=== PATIENT | female | born 1950 | race Caucasian/White ===

== ENCOUNTER 2019-04-15 18:53 | Inpatient (IN) ==
[2019-04-15 21:29] LABS: URINE SOURCE CLEAN CATCH
[2019-04-15 21:31] LABS: BASO# 0.08 X1000 (0.0-0.2); EOS# 0.18 X1000 (0.0-0.7); EOS% 2.3 % (0.0-10.0); HEMATOCRIT 50.4 % (37.0-47.0); HEMOGLOBIN 16.1 g/dL (12.0-16.0); IMM GRAN# 0.02 X1000 (0.0-0.04); IMM GRAN% 0.3 % (0.0-0.5); LYMPH# 2.67 X1000 (1.2-3.4); LYMPH% 34.6 % (20.5-51.1); MCH 31.2 PG (27-31); MCHC 31.9 g/dL (33-37); MCV 97.7 FL (81-99); MONO# 0.44 X1000 (0.11-0.59); MONO% 5.7 % (1.7-9.3); MPV 11.4 FL (7.4-10.4); NEUT# 4.33 X1000 (1.4-6.5); NEUT% 56.1 % (42.2-75.2); PLT 272 X1000 (130-400); RBC 5.16 XMIL (4.2-5.4); RDW 13.9 % (11.5-14.5); WBC 7.72 X1000 (4.8-10.8)
[2019-04-15 21:34] LABS: BILIRUBIN URINE NEGATIVE (NEGATIVE); BLOOD URINE NEGATIVE (NEGATIVE); COLOR YELLOW; GLUCOSE URINE NEGATIVE (NEGATIVE); KETONE URINE TRACE mg/dL (NEGATIVE); LEUKOCYTES URINE LARGE (NEGATIVE); NITRITE URINE NEGATIVE (NEGATIVE); PROTEIN URINE TRACE mg/dL (NEGATIVE); SP GRAVITY URINE 1.023; TURBIDITY URINE CLEAR (CLEAR); UROBILINOGEN URINE NORMAL (NORMAL)
[2019-04-15 21:39] LABS: UR EPITHELIAL CELLS <10 /HPF (<10); URINE BACTERIA 1+ /HPF; URINE RBC <10 /HPF (<10)
[2019-04-15] MEDS ORDERED: ROCEPHIN 1 GM in NS 50 ML IV ONE (21:47)
[2019-04-15] MEDS ORDERED: DILAUDID IV ONE (22:12)
[2019-04-15] MEDS ORDERED: ZOFRAN IV ONE (22:12)
[2019-04-15 22:20] LABS: AGAP 15; ALB/GLOB RATIO 1.3; ALBUMIN 4.4 g/dL (3.5-5.0); ALKALINE PHOSPHATASE 153 U/L (32-104); AMYLASE 22 U/L (20-200); BUN 8 mg/dL (8-22); CALCIUM 10.1 mg/dL (8.8-10.2); CHLORIDE 101 mmol/L (98-107); COSMO 281; CREATININE 0.6 mg/dL (0.5-0.9); ESTIMATED GFR > 60; GLUCOSE 91 mg/dL (70-104); GOT 16 U/L (10-30); GPT 11 U/L (10-36); LIPASE 18 U/L (13-60); POTASSIUM 4.2 mmol/L (3.5-5.1); SODIUM 142 mmol/L (136-145); TCO2 26 mmol/L (25-35); TOTAL BILIRUBIN 0.58 mg/dL (0.20-1.00); TOTAL PROTEIN 7.8 g/dL (6.3-8.3)
--- NOTE | 2019-04-15 22:32 | PROVIDER DOCUMENTATION ---
This chart was entered by Maria Alejandra Alvarado Scribe, acting as scribe for Naeem Hoff MD. HPI-Abdominal Pain/GI Problem - General Chief Complaint: Abdominal Pain Stated Complaint: GB ISSUES Time Seen by Provider: 04/15/19 22:07 Source: patient Allergies/Adverse Reactions: Patient Allergies Allergy/AdvReac Type Severity Reaction Status Date / Time amoxicillin Allergy HEADACHE Verified 04/15/19 21:51 clarithromycin [From Biaxin] Allergy RASH Verified 04/15/19 21:51 Home Medications: Home Medication List Medication Instructions Recorded Confirmed Last Taken Type Dicyclomine HCl 20 mg PO Q6H PRN PRN #20 tab 03/25/19 04/15/19 Unknown Rx Ketorolac [Toradol] 10 mg PO Q6H PRN PRN #20 tab 03/25/19 04/15/19 Unknown Rx Ondansetron [Ondansetron Odt] 4 mg PO Q6-8H PRN PRN #10 03/25/19 04/15/19 Unknown Rx tab.rapdis Ciprofloxacin HCl [Cipro] 500 mg pe PO BID 04/15/19 04/15/19 Unknown History Hydrocodone/Acetaminophen 1 ea PO Q6H 04/15/19 04/15/19 Unknown History [Hydrocodon-Acetaminophn 10-325] - History of Present Illness-ABD Nature of Presenting Problems: 69 y/o female presents to the ED with RUQ abdominal pain radiating into her back, nausea, and vomiting. The patient states she was seen here 03/[address] Gonzalez, diagnosed with cholelithiasis with cholecystitis, treated with Augmentin and told to follow-up with Dr Middleton which she did on Friday with cholecystec juan carlos scheduled for 04/22 but was told if pain worsened to return to the ED for surgery earlier. The patient states she is unable to eat without significant increase in pain. She states history of allergy to Biaxin and amoxicillin. Abdominal Pain Onset Location: reports: RUQ Pain Radiation: reports: back Onset/Duration: reports: unsure, other (worsening since yesterday) Timing: reports: still present Modifying Factors: worse with: eating Associated Symptoms: reports: nausea, vomiting. denies: diarrhea Rectal Bleeding: reports: none Similar Symptoms Previously?: Yes Recently seen or treated by another doctor?: Yes (here 03/[address] Middleton Friday ) Review of Systems - Adult - REVIEW OF SYSTEMS - ADULT Constitutional: denies: chills, fever, weight loss Eyes: reports: no symptoms reported Ears, Nose, Mouth & Throat: reports: no symptoms reported Cardiovascular: denies: chest pain, palpitations, syncope Respiratory: reports: no symptoms reported Gastrointestinal: reports: abdominal pain (RUQ), nausea, vomiting. denies: diarrhea Genitourinary: reports: no symptoms reported Musculoskeletal: reports: no symptoms reported Integumentary: reports: no symptoms reported Neurological: reports: no symptoms reported Psychiatric: reports: no symptoms reported Endocrine: reports: no symptoms reported Hematologic/Lymphatic: reports: no symptoms reported Allergic/Immunologic: reports: no symptoms reported All Other Systems: Reviewed and Negative Past History - Adult - PAST MEDICAL HISTORY-ADULT Review of Records: reports: Old Records Reviewed, Nursing Assessment Review, Medications Reviewed Major Childhood Illnesses: reports: denies history Cardiovascular: reports: denies history Respiratory: reports: denies history Gastrointestinal: reports: denies history Obstetrical/Gynecological: reports: denies history Genitourinary: reports: denies history Musculoskeletal: reports: denies history Neurological: reports: denies history Endocrine/Immune: reports: denies history Other Conditions: reports: denies history - IMMUNIZATION STATUS Childhood Immunizations: See Nurse Assessment Flu Vaccine: See Nurse Assessment - FAMILY HISTORY Family History: reviewed, not pertinent - SOCIAL HISTORY Smoking: cigarettes Living Situation: family Physical Exam-General - PHYSICAL EXAM-ADULT Initial Vital Signs Reviewed: Yes - CONSTITUTIONAL General Appearance: alert, mild distress - EYES Eyes: PERRL/EOMI - HEAD, EARS, NOSE, MOUTH & THROAT HENMT: normocephalic/atraumatic, moist mucous membranes - NECK Neck: full range of motion, supple - RESPIRATORY Respiratory: lungs clear, normal breath sounds. negative: rhonchi, wheezing - CARDIOVASCULAR Cardiovascular: regular rate, rhythm, no edema, no gallop, no murmur - GASTROINTESTINAL (ABDOMEN) Abdominal Exam: soft, tenderness (ruq) - MUSCULOSKELETAL Extremity: normal range of motion, no pedal edema - SKIN Integumentary: normal color, warm/dry. negative: diaphoresis - NEUROLOGIC Neurologic: grossly normal Progress - PLAN OF CARE/RESULTS Progress/Plan/Lab Results: Vital Signs - 8 hr 04/15/19 19:10 Temperature 98.1 F Pulse Rate 59 L Respiratory Rate 15 Blood Pressure 162/85 O2 Sat by Pulse Oximetry 100 Laboratory Results - last 24 hr 04/15/19 04/15/19 20:45 21:11 WBC 7.72 RBC 5.16 Hgb 16.1 H Hct 50.4 H MCV 97.7 MCH 31.2 H MCHC 31.9 L RDW Std Deviation 13.9 Plt Count 272 MPV 11.4 H Immature Gran % (Auto) 0.3 Neut % (Auto) 56.1 Lymph % (Auto) 34.6 [place] % (Auto) 5.7 Eos % (Auto) 2.3 Baso % (Auto) 1.0 H Immature Gran # (Auto) 0.02 Neut # (Auto) 4.33 Lymph # (Auto) 2.67 [place] # (Auto) 0.44 Eos # (Auto) 0.18 Baso # (Auto) 0.08 Urine Source CLEAN CATCH Urine Color YELLOW Urine Turbidity CLEAR Urine pH 6.0 Ur Specific [place] 1.023 Urine Protein TRACE A Ur Glucose (Stick) NEGATIVE Ur Ketones (Stick) TRACE A Urine Blood NEGATIVE Urine Nitrite NEGATIVE Urine Bilirubin NEGATIVE Urobilinogen Dipstick NORMAL Urine Leukocytes LARGE A Urine WBC (Auto) 10-20 A Urine RBC (Auto) <10 U Epithel Cells (Auto) <10 Urine Bacteria (Auto) 1+ Urine Crystals Not Reportable Small Round Cells Not Reportable Urine Casts Not Reportable Urine Yeast-like Cells Not Reportable Orders Category Date Time Status Saline Loc DIRECTED Care 04/15/19 19:24 Active NPO Diet 04/15/19 19:24 Active AMYLASE [CHEM] Stat Lab 04/15/19 20:45 Received CBC WITH ELECTRONIC DIFF [HEME] Stat Lab 04/15/19 20:45 Completed COMPREHENSIVE METABOLIC PANEL [CHEM] Stat Lab 04/15/19 20:45 Received LIPASE [CHEM] Stat Lab 04/15/19 20:45 Received URINALYSIS W/POSS RFLX CULT [URINALYSIS] Stat Lab 04/15/19 21:11 Completed URINE CULTURE [RM] Routine Lab 04/15/19 21:11 Received URINE MANUAL MICROSCOPIC [URINALYSIS] Stat Lab 04/15/19 21:11 Completed CefTRIAXONE [Rocephin] 1 gm Med 04/15/19 21:47 Active 0.9% Sodium Chloride Inj [Ns] 50 ml IV NOW Result Diagrams: 04/15/19 20:45 - CONSULTS/PCP/HOSPITALIST Notification #1 *Consult/PCP/Hospitalist*: Dr. López fabrication specialist for Dr. Middleton Time Discussed: 22:17 Reason/Comments: uti, worsening pain Consult Disposition: other (recommendation admission to hospitalist) #2 Consult: Hospitalist, Dr. Mckoy Time Discussed: 22:21 Reason/Comments: cholelithiasis with cholecystis Consult Disposition: Admit Departure - Departure Date of Disposition Decision: 04/15/19 Time of Disposition Decision: 22:19 DIAGNOSIS: Cholelithiasis and acute cholecystitis without obstruction, Biliary dyskinesia Disposition: ADMITTED INPATIENT 09 Certified Medical Emergency: Emergent Condition: Stable Referrals and Follow-Ups: None,PCP [Primary Care Provider] - - Critical Care Note This patient required my direct & personal management of CC.: No Attestation - Physician/ LAUREN Attestation Patient care was provided by Advanced Practice Provider:: No The physician spent face to face time with patient:: Yes Advanced Practice Provider documentation review:: Supervising physician onsite and consulted in the evaluation and care of this patient. The physician did have a face to face encounter with the patient. This chart was documented by the indicated scribe, (Maria Alejandra Alvarado, Jamil) and accurately reflects the services I performed and decisions made by me, Naeem Hoff MD, as attested by the provider's signature.
[2019-04-15] MEDS ORDERED: DILAUDID IV PRN ×2 (22:39→22:41)
[2019-04-15] MEDS ORDERED: SODIUM CHLORIDE 0.9% INJ SCH (22:45)
[2019-04-16] MEDS: PROTONIX IV SCH ×2 (00:56→23:45)
[2019-04-16] MEDS: ZOSYN 3.375 GM in NS 50 ML IV SCH ×5 (00:56→23:45)
[2019-04-16] MEDS: NS 1,000 ML IV SCH ×2 (00:56→17:21)
[2019-04-16] MEDS: ZOFRAN IV PRN ×3 (05:19→17:21)
--- NOTE | 2019-04-16 05:42 | HISTORY AND PHYSICAL ---
CHIEF COMPLAINT: Right upper quadrant abdominal pain along with nausea noted prior to admission. HISTORY OF PRESENT ILLNESS: Ms. Caitlyn Sanchez is a 69-year-old female, who was recently diagnosed as having cholelithiasis as well as cholecystitis. She was seen by Dr. Gonzalez in the ER on 03/25/2019. The patient was scheduled to have follow up with Dr. Middleton to have cholecystectomy done on 04/22/2019. The patient now presents to the hospital with right upper quadrant abdominal pain along with nausea noted prior to admission. She also describes having vomiting. No fever The patient's AST was 16, ALT 11 with alkaline phosphatase of 125. The patient will now be admitted to the floor for further management. PAST MEDICAL HISTORY: Cholelithiasis with cholecystectomy. SOCIAL HISTORY: She smokes cigarettes. Drinks alcohol occasionally. No drug use. ALLERGIES: She is allergic to Biaxin. PAST SURGICAL HISTORY: Unremarkable. FAMILY HISTORY: Positive for diabetes. MEDICATIONS: 1. Ciprofloxacin 500 mg p.o. twice a day. 2. Dicyclomine 20 mg every 6 hours p.r.n. 3. Hydrocodone 10/325 every 6 hours. 4. Ketorolac 10 mg every 6 hours p.r.n. 5. Ondansetron 4 mg every 6 to 8 hours p.r.n. REVIEW OF SYSTEMS: Constitutional: No fever. SYSTEM DESIGNER: Headaches. Eyes: She has glasses. ENT: No sinus problems or hearing loss. Cardiovascular: No chest pain. Respiratory: No cough. GI: As in history of present illness. : No dysuria. Musculoskeletal: Shows joint pains. Dermatology: No skin lesions. Hematology: No bleeding problems. Psychiatric: No anxiety or depression. Endocrinology: No issues with thyroid or diabetes. PHYSICAL EXAMINATION: VITAL SIGNS: Temperature 97.7 degrees and pulse 70. Blood pressure 177/86. Oxygen saturation is 96%. HEENT: Atraumatic, normocephalic, anicteric. Extraocular movements intact. No oral lesions noted. NECK: No lymphadenopathy or thyromegaly. CARDIOVASCULAR: S1, S2. RESPIRATORY: There is evidence of good air entry bilaterally. ABDOMEN: Soft. She is tender in the right upper quadrant. No masses felt. EXTREMITIES: No evidence of edema. CENTRAL NERVOUS SYSTEM: No obvious focal deficit noted. LABORATORY STUDIES: WBCs 7.72, hematocrit 50.4 with a platelet count of 272,000. Sodium 142, potassium 4.2, chloride 101, bicarb 26, BUN is 8 and creatinine 0.6. AST is 16. ALT is 11. Alkaline phosphatase 133. UA shows large amount of leukocytes with 10-20 WBC's per high-power field. ASSESSMENT AND PLAN: 1. Acute cholecystitis/gallstones. Maintain patient NPO. Antiemetics, analgesics, IV antibiotics. Consult with Surgery for possible cholecystectomy. 2. Possible urinary tract infection. Obtain urine culture as well as blood cultures. Maintain patient on antibiotics. 3. Erythrocytosis probably secondary to hemo concentration. Follow up on the patient's hematocrit following hydration. 4. Deep vein thrombosis prophylaxis. Sequential compression devices. 5. Gastrointestinal prophylaxis. PPI. cc: Ronnell Fernández MD MTDD
--- NOTE | 2019-04-16 07:11 | GENERAL SURGERY CONSULTATION ---
DATE: 04/16/2019 REQUESTING PHYSICIAN: Dr. Fernández REASON FOR CONSULTATION: Cholecystitis. HISTORY OF PRESENT ILLNESS: A 69-year-old female who has been diagnosed with cholelithiasis and was actually scheduled to have a cholecystectomy by my partner, Dr. Middleton, next week, presenting now with worsening abdominal pain. She was told to come in if she had further symptoms and she did. She was seen in the emergency department and found to have worsening symptoms, was admitted and started on antibiotics. It was also noted that she had significant nausea and vomiting. She has been admitted for resuscitation. She is feeling a little bit better, but had a rough night. PAST MEDICAL HISTORY: Cholelithiasis. PAST SURGICAL HISTORY: None. SOCIAL HISTORY: Current smoker. ALLERGIES: Biaxin. HOME MEDICATIONS: Reviewed. FAMILY HISTORY: Positive for diabetes. REVIEW OF SYSTEMS: A full 14 systems reviewed and negative as specified in HPI. PHYSICAL EXAMINATION: Vital Signs: The patient is currently afebrile. Her vital signs are stable. General: No acute distress, but appears uncomfortable. female, looks stated age. HEENT: Normocephalic, atraumatic. Pupils equal, round, reactive to light. Mucous membranes moist. Oropharynx benign. Neck: Supple. Trachea midline. Cardiovascular: Regular rate and rhythm. Lungs: Grossly clear. Abdomen: Soft. Some discomfort in the right side in the upper abdomen. Extremities: Moves all extremities. Neurologic: Grossly intact. Skin: No signs of jaundice. Vascular: All extremities perfused. LABORATORY DATA: White blood count is normal, hematocrit is elevated at 50. Remainder of labs reviewed. Alkaline phosphatase is slightly elevated. ASSESSMENT AND PLAN: A 69-year-old female with cholecystitis. Cholecystitis: At this time, we will continue the patient's admission. We will resuscitate her, keep her on antibiotics and plan for surgical intervention tomorrow. Discussed with her the risks, benefits, and alternatives of the procedure with risks including, but not limited to, bleeding, infection, risk of anesthesia, risk of common bile duct injury and bile leak, risk of injuring other organs discussed. All questions answered. We will give her clear liquids today and nothing by mouth after midnight, with plan on surgical intervention tomorrow. cc: Favian Guevara MD
[2019-04-16] MEDS ORDERED: NORCO-5 PO PRN (08:48)
--- NOTE | 2019-04-16 16:12 | PROGRESS NOTE ---
DATE: 04/16/2019 SUBJECTIVE: The patient is resting comfortably in bed. She states that her abdominal pain is a little bit better. OBJECTIVE: Vital Signs: Temperature 98.1 degrees, blood pressure 157/69, heart rate 70, respirations 16, O2 saturation is 100% on room air. General: This is an elderly female lying in bed in no acute distress. Heart: S1, S2 normal. Regular rate and rhythm. Lungs: Equal air entry bilaterally. No wheezing. No rales. No rhonchi. Abdomen: Positive bowel sounds. Soft, nontender, nondistended. Extremities: No edema. No cyanosis. Neurologic: The patient is alert and oriented x3. LABORATORY DATA: None. ASSESSMENT AND PLAN: 1. Acute cholecystitis. The patient is scheduled to undergo a laparoscopic cholecystectomy tomorrow. We will continue with IV fluids and Zosyn. 2. Deep vein thrombosis prophylaxis. Continue with SCDs. cc: Roxanna Mckoy MD
[2019-04-17] MEDS: NS 1,000 ML IV SCH (02:02)
[2019-04-17] MEDS: ZOSYN 3.375 GM in NS 50 ML IV SCH (05:48)
[2019-04-17] MEDS ORDERED: LR 1,000 ML ONE (07:28)
[2019-04-17] MEDS ORDERED: SODIUM CHLORIDE 0.9% ONE (07:28)
[2019-04-17] MEDS ORDERED: SENSORCAINE-MPF 0.5%/EPI 1:200,000 ONE (07:28)
[2019-04-17 08:05] LABS: BASO# 0.04 X1000 (0.0-0.2); BASO% 0.5 % (0.0-0.8); EOS# 0.21 X1000 (0.0-0.7); EOS% 2.8 % (0.0-10.0); HEMATOCRIT 43.3 % (37.0-47.0); HEMOGLOBIN 13.6 g/dL (12.0-16.0); IMM GRAN# 0.02 X1000 (0.0-0.04); IMM GRAN% 0.3 % (0.0-0.5); LYMPH% 26.7 % (20.5-51.1); MCH 31.3 PG (27-31); MCHC 31.4 g/dL (33-37); MCV 99.8 FL (81-99); MONO# 0.46 X1000 (0.11-0.59); MONO% 6.1 % (1.7-9.3); MPV 11.7 FL (7.4-10.4); NEUT# 4.75 X1000 (1.4-6.5); NEUT% 63.6 % (42.2-75.2); PLT 215 X1000 (130-400); RBC 4.34 XMIL (4.2-5.4); RDW 13.8 % (11.5-14.5); WBC 7.48 X1000 (4.8-10.8)
[2019-04-17] MEDS ORDERED: ZOFRAN ONE (08:18)
[2019-04-17] MEDS ORDERED: ZEMURON ONE (08:18)
[2019-04-17] MEDS ORDERED: DIPRIVAN 1% ONE (08:18)
[2019-04-17] MEDS ORDERED: DECADRON ONE (08:18)
[2019-04-17] MEDS ORDERED: XYLOCAINE-MPF 2% ONE (08:18)
[2019-04-17] MEDS ORDERED: QUELICIN (DOSE) ONE (08:18)
[2019-04-17 08:22] LABS: AGAP 10; ALB/GLOB RATIO 1.4; ALBUMIN 3.6 g/dL (3.5-5.0); ALKALINE PHOSPHATASE 108 U/L (32-104); BUN 6 mg/dL (8-22); CALCIUM 8.7 mg/dL (8.8-10.2); CHLORIDE 105 mmol/L (98-107); COSMO 280; CREATININE 0.6 mg/dL (0.5-0.9); ESTIMATED GFR > 60; GLUCOSE 86 mg/dL (70-104); GOT 13 U/L (10-30); GPT 8 U/L (10-36); POTASSIUM 3.6 mmol/L (3.5-5.1); SODIUM 142 mmol/L (136-145); TCO2 27 mmol/L (25-35); TOTAL BILIRUBIN 0.69 mg/dL (0.20-1.00); TOTAL PROTEIN 6.2 g/dL (6.3-8.3)
--- NOTE | 2019-04-17 08:39 | GENERAL SURGERY PROGRESS NOTE ---
DATE: 04/17/2019 SUBJECTIVE: Patient seems to be doing okay. She is ready for surgery. OBJECTIVE: Vital Signs: Patient is currently afebrile. Her vital signs are stable. General exam: No acute distress. HEENT: Normocephalic, atraumatic. Pupils equal, round, reactive to light. Mucous membranes moist. Oropharynx benign. Neck: Supple. Trachea midline. Cardiovascular: Regular rate and rhythm. Lungs: Grossly clear. Abdomen: Soft. Some tenderness to palpation, right upper quadrant. No peritoneal signs. Extremities: Moves all extremities. Neurologic: Grossly intact. Skin: No signs of jaundice. Vascular: All extremities perfused. LABORATORY: None this morning as of yet. ASSESSMENT AND PLAN: A 69-year-old female with cholecystitis. 1. Cholecystitis. At this time, we will plan on surgical intervention today. I discussed with her and documented the risks, benefits, alternatives of the procedure. We will proceed with surgery today. cc: Favian Guevara MD
[2019-04-17] MEDS ORDERED: TORADOL ONE (09:34)
[2019-04-17] MEDS ORDERED: EPHEDRINE ONE (09:37)
[2019-04-17] MEDS ORDERED: FENTANYL ONE (10:15)
--- NOTE | 2019-04-17 10:29 | OPERATIVE NOTE ---
PROCEDURE DATE: 04/17/2019 PREOPERATIVE DIAGNOSIS: Cholecystitis. POSTOPERATIVE DIAGNOSIS: Cholecystitis. PROCEDURE: Laparoscopic cholecystectomy. SURGEON: Favian Guevara MD. MILITARY POLICE OFFICER: None. ANESTHESIA: General endotracheal. INTRAOPERATIVE FINDINGS: Cholecystitis. COMPLICATIONS: None at time of dictation. EBL: 30 mL. SPECIMENS REMOVED: Gallbladder. BRIEF HISTORY: A 69-year-old female who had seen my partner as an outpatient. They had electively scheduled for a cholecystectomy but she had clinical deterioration. She wanted her gallbladder removed. The risks, benefits, and alternatives of procedure were discussed. All questions answered. DESCRIPTION OF PROCEDURE: After informed consent was obtained patient brought to the operative theatre, transferred to the operating table in supine position general endotracheal anesthesia was then performed without complication. A formal time-out was then performed confirming patient, date, procedure. All in agreement. At that time, attention was given to the abdomen. An infraumbilical incision was made through which using Optiview technique we inserted a 11 mm trocar, connected insufflation. Pneumoperitoneum was achieved. Under direct visualization, we placed 3 more trocars, all 5 mm, 1 in the subxiphoid 2 in the right upper quadrant. Using these, the gallbladder was identified and retracted cephalad. We were able to dissect out the cystic duct and cystic artery to achieve the critical view of safety. We doubly clipped and ligated the cystic duct and cystic artery. We then dissected the gallbladder off the gallbladder fossa. We placed into an EndoCatch and brought it out through the infraumbilical incision which had to be enlarged slightly to accommodate the stone burden. We re-examined the gallbladder fossa. There was no active bleeding, no drainage of bile. We irrigated out the abdomen until suction fluid was clear. We then removed all trocars, disconnected insufflation. Pneumoperitoneum was released. The infraumbilical incision was closed with 0 Vicryl in a [id number] stitch. The patient tolerated the procedure well. All skin incisions closed with 4-0 Monocryl. cc: Favian Guevara MD
[2019-04-17] MEDS ORDERED: NORCO-10 ONE (10:41)
[2019-04-17] MEDS ORDERED: TORADOL PO PRN (11:04)
[2019-04-17] MEDS ORDERED: BENTYL PO PRN (11:04)
[2019-04-17] MEDS ORDERED: ZOFRAN ODT PO PRN (11:04)
[2019-04-17] MEDS ORDERED: NORCO-10 PO PRN (11:04)
[2019-04-17 12:03] VITALS: BP 166/85
[2019-04-17] MEDS ORDERED: CIPRO PO SCH (21:00)
--- NOTE | 2019-04-27 11:48 | DISCHARGE SUMMARY ---
ADMISSION DATE: 04/15/2019 DISCHARGE DATE: 04/17/2019 FINAL DISCHARGE DIAGNOSES: Acute cholecystitis, status post laparoscopic cholecystectomy. CONSULTATIONS: General surgery consultation with Dr. Guevara. PROCEDURE: Laparoscopic cholecystectomy performed on 04/17/2019. HOSPITAL COURSE: Ms. Sanchez is a 69-year-old female who presented to the ER with a chief complaint of right upper quadrant abdominal pain and nausea. On admission, the patient was admitted to the hospitalist service and general surgery was consulted. The patient was diagnosed with acute cholecystitis. The patient was taken to the OR on 04/17/2019, at which time a laparoscopic cholecystectomy was performed. The patient did well postoperatively and was ultimately cleared for discharge home on 04/17/2019. DISCHARGE MEDICATIONS: 1. [place] 10/325 one tablet oral every 6 hours p.r.n. 2. Zofran 4 mg oral every 6 hours p.r.n. for pain. DISCHARGE DIET: Low-fat diet. ACTIVITY: As tolerated. FOLLOWUP INSTRUCTIONS: The patient will need to follow up with Dr. Guevara as scheduled by his clinic. cc: Roxanna Mckoy MD
== END 2019-04-17 13:26 | disposition home or self-care (01) | DRG 419 ==
LOC: ED 18:53 → SUATTDRO 22:55 → 3N 22:55
PROVIDERS: ATTEND Internal Medicine